=== PATIENT | male | born 1985 | race Two or more races ===

== ENCOUNTER 2023-11-30 02:46 | Emergency (ER) | payer BC, OTHER ==
[~2023-11-30] VITALS: Ht 175.3 cm; Wt 86.4 kg
[2023-11-30 03:30] LABS: Urine Bacteria NONE SEEN /hpf (None Seen); Urine Blood 2+ /uL (Negative); Urine Clarity Clear (Clear); Urine Mucus FEW (None Seen); Urine Protein, UAD Negative (Negative); Urine Specific Gravity 1.015 (1.001-1.035); Urine Urobilinogen Normal (Negative); Urine WBC <1 /hpf (0 - 3); Urine pH 6.5 (5.0-8.0)
[2023-11-30 03:43] LABS: Urine Color STRAW (Yellow)
[2023-11-30 04:00] LABS: Basophils # (auto) 0 10 ^3/uL (0-0.2); Basophils % (auto) 0.5 % (0.0-2.0); Eosinophils # (auto) 0.2 10 ^3/uL (0-0.8); Eosinophils % (auto) 2.1 % (0.0-7.0); Hematocrit 43.6 % (41.0-53.0); Hemoglobin 14.6 g/dL (13.5-17.5); Lymphocytes # (auto) 1.1 10 ^3/uL (0.4-5.4); Lymphocytes % (auto) 13.4 % (10.0-50.0); Mean Corpuscular Hemoglobin 31.4 pg (28.0-32.0); Mean Corpuscular Hgb Conc. 33.5 g/dL (32.0-36.0); Mean Corpuscular Volume 93.8 fL (80.0-100.0); Monocytes # (auto) 0.5 10 ^3/uL (0-1.3); Monocytes % (auto) 6.4 % (0.0-12.0); Neutrophils # (auto) 6.5 10 ^3/uL (1.6-8.6); Neutrophils % (auto) 77.6 % (37.0-80.0); Nucleated Red Blood Cells % 0.1 %; Red Blood Cells 4.64 10^6/uL (4.5-5.90); Red Cell Distribution Width 13.2 % (11.8-14.3); White Blood Cell 8.3 10^3/uL (4.4-10.8)
[2023-11-30 04:11] LABS: Alanine Aminotransferase 38 U/L (7-40); Albumin 4.5 g/dL (3.2-4.8); Alkaline Phosphatase 99 U/L (46-116); Anion Gap 5 (5-15); Aspartate Aminotransferase 24 U/L (13-40); BUN/Creatinine Ratio 9.4 (10.0-20.0); Blood Urea Nitrogen 12 mg/dL (9-23); Carbon Dioxide 27 mmol/L (20-30); Chloride 112 mmol/L (98-107); Glucose 94 mg/dL (74-106); Lipase 37 U/L (12-53); Sodium 144 mmol/L (136-145)
[2023-11-30 04:12] LABS: Bilirubin, Total 0.3 mg/dL (0.2-1.0); Total Protein 7.7 g/dL (5.7-8.2)
[2023-11-30 06:24] VITALS: BP 119/57; PULSE 67; RESP 18; TEMP 97.8; O2SAT 97
== END 2023-11-30 06:28 | disposition home or self-care (01) ==
LOC: ER 02:46
DX: R10.31 Right lower quadrant pain (principal); Z98.890 Other specified postprocedural states
CPT/HCPCS: 36415; 74176; 80053; 81001; 83690; 85025